=== PATIENT | male | born 1930 | race Caucasian/White ===

== ENCOUNTER 2016-04-15 10:18 | Emergency (ER) | payer MEDICARE, OTHER ==
[2016-04-15 10:36] VITALS: BP 143/73
--- NOTE | 2016-04-15 10:46 | ED Physician Documentation ---
General Adult - HISTORIAN Historian: patient - HPI Stated Complaint: Rash Chief Complaint: General Adult Onset: days ago (10) Severity: moderate Further Comments: yes (Pt is an 85 yo male with a rash on his anterior neck that has been going on for 10 days. Pt wondered if it was caused by the shaving cream he's been using, and changed shaving creams twice. Rash is pruritic and a little scaley.) - ROS CONST: no problems EYES/ENT: none CVS/RESP: none GI/: none MS/SKIN/LYMPH: rash (pruritic rash on anterior neck, b/l) - PAST HX Past History: hypertension, other (HLD, enlarged prostate) Allergies/Adverse Reactions: Allergies Allergy/AdvReac Type Severity Reaction Status Date / Time No Known Allergies Allergy Verified 04/15/16 10:29 Home Medications: Ambulatory Orders Medication Instructions Recorded Unobtainable [Unobtainable] 02/17/13 - SOCIAL HX Smoking History: chew - FAMILY HX Family History: No - VITAL SIGNS Vital Signs: Vital Signs Temp Pulse Resp BP Pulse Ox 97.9 F 54 L 16 143/73 98 04/15/16 10:31 04/15/16 10:31 04/15/16 10:31 04/15/16 10:31 04/15/16 10:31 - REVIEWED ASSESSMENTS Nursing Assessment Reviewed: Yes Vitals Reviewed: Yes Progress - Progress Progress: Rx Triamcinolone 1% cream. Apply to sparingly to affected area twice daily for 7 to 10 days. General Adult Physical Exam - PHYSICAL EXAM GENERAL APPEARANCE: mild distress EENT: eye inspection normal, ENT inspection normal, pharynx normal NECK: supple, other (erythematous, mildly scaley rash on anterior neck, b/l) RESPIRATORY: no resp distress CVS: reg rate & rhythm BACK: normal inspection SKIN: other (erythematous, mildly scaley rash on anterior neck, b/l) EXTREMITIES: non-tender, normal range of motion, no evidence of injury, no edema NEURO: oriented X3 Discharge Clincal Impression: Rash Referrals: Meaghan Minor FNP [Primary Care Provider] - 2 Days Additional Instructions: Rx Triamcinolone 1% cream. Apply to sparingly to affected area twice daily for 7 to 10 days. Home Medications: Ambulatory Orders Unobtainable [Unobtainable] 02/17/13 Condition: Good Disposition: 01 HOME, SELF-CARE Decision to Admit: NO Decision Time: 10:46
== END 2016-04-15 10:51 | disposition home or self-care (01) ==
LOC: ED 10:18
DX: R21 Rash and other nonspecific skin eruption (principal); F17.220 Nicotine dependence, chewing tobacco, uncomplicated; I10 Essential (primary) hypertension
CPT/HCPCS: 99282; 99283

== ENCOUNTER 2016-05-16 07:29 | Outpatient (CLI) | payer MEDICARE, OTHER ==
[2016-05-16 07:43] LABS: BASOPHILS % 0.4 (0.0-1.5); EOSINOPHILS % 4.3 % (0.0-6.8); LYMPHOCYTES # 1.8 # k/uL (0.6-4.0); MONOCYTES # 0.5 # k/uL (0.0-0.9); MONOCYTES % 6.4 % (0.0-11.0); NEUTROPHILS # 4.6 # k/uL (1.4-7.7)
[2016-05-16 08:24] LABS: eGFR (African) > 60; eGFR (Non-African) > 60
== END 2016-05-16 07:30 ==
LOC: LAB 07:29
PROVIDERS: ATTEND Internal Medicine Cardiovascular Disease
DX: I25.10 Atherosclerotic heart disease of native coronary artery without angina pectoris (principal); I35.0 Nonrheumatic aortic (valve) stenosis; I48.2 Chronic atrial fibrillation; I10 Essential (primary) hypertension
CPT/HCPCS: 36415; 80053; 80061; 84443; 85025

== ENCOUNTER 2016-05-18 10:15 | Outpatient (CLI) | payer MEDICARE, OTHER | END 2016-05-18 10:16 | LOC: CARD 10:15 | PROVIDERS: ATTEND Internal Medicine Cardiovascular Disease | DX: I48.2 Chronic atrial fibrillation (principal) | CPT/HCPCS: G0463 ==

== ENCOUNTER 2016-09-24 13:42 | Outpatient (CLI) | payer MEDICARE, OTHER ==
--- NOTE | 2016-09-24 15:29 | Diagnostic Imaging Report ---
KAREEM PABLO [facility] [address] Count Includes [facility] [address] [address] Report Submission Date: Sep 24, 2016 2:16:41 PM CDT Patient Study Name: JASWINDER BATISTA Date: Sep 24, 2016 1:46:27 PM CDT Modality Type: CR Gender: M Description: UPPER EXTREMITY : 31 Institution: [facility] Physician: KAREEM PABLO Examination: Plain film humerus History: Fall Comparison exams: None provided Findings: 4 views of the humerus demonstrate normal cortical margins. No fracture. No dislocation. Elbow and shoulder articular degenerative changes. No joint effusion Impression: Articular degenerative changes. No acute osseous abnormality. Electronically signed on Sep 24, 2016 2:16:41 PM CDT by: Mike MISHRA
== END 2016-09-24 13:43 ==
LOC: RAD 13:42
PROVIDERS: ATTEND Physician Assistant
DX: M79.601 Pain in right arm (principal)
CPT/HCPCS: 73060

== ENCOUNTER 2016-09-30 08:17 | Outpatient (CLI) | payer MEDICARE, OTHER ==
--- NOTE | 2016-09-30 14:23 | Diagnostic Imaging Report ---
[facility] [address] [facility] [address] Report Submission Date: Sep 30, 2016 1:55:39 PM CDT Patient Study Name: JASIWNDER BATISTA Date: Sep 30, 2016 9:02:31 AM CDT Modality Type: MR Gender: M Description: MRI UP EXT JNT W/O CONTRAST : 31 Institution: [facility] Physician: KAREEM PABLO Magnetic resonance imaging of right shoulder without contrast History: Persistent pain after fall 3 weeks ago Findings: Multiplanar magnetic resonance imaging the right shoulder performed without contrast. A type II curved acromion process present. There is widening of the acromioclavicular joint without marrow edema or joint effusion. This may represent an old grade II acromioclavicular separation vs distal clavicle resection. A small subacromial-subdeltoid bursal effusion is present. A full thickness distal supraspinatus tendon tear is present with retraction of some fibers to the mid humeral head level. A complete full thickness subscapularis tendon tear is observed with retraction of the fibers to the glenoid rim. Intramuscular edema is present. A biceps anchor tear is also present. There is also retraction of the extra-articular portion of the long head biceps tendon with only thin fibers observed in the bicipital groove. The teres minor and infraspinatus tendons are intact. There is no evidence of muscle atrophy. A moderate glenohumeral joint effusion is observed. A middle glenohumeral ligament tear is probably present. The superior and inferior glenohumeral ligaments are intact. There is minimal posterior superior glenoid labrum fraying. The remainder of the labrum is intact. Impression: 1. Retracted full thickness supraspinatus and subscapularis tendon tears. 2. Biceps anchor tear with long head biceps retraction. 3. Probable middle glenohumeral ligament tear. 4. 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 5. Joint and bursal effusions. 6. Mild posterior superior glenoid labrum fraying. Electronically signed on Sep 30, 2016 1:55:39 PM CDT by: Daniel MISHRA
== END 2016-09-30 08:37 | disposition home or self-care (01) ==
LOC: RAD 08:17
PROVIDERS: ATTEND Physician Assistant
DX: M75.101 Unspecified rotator cuff tear or rupture of right shoulder, not specified as traumatic (principal); M79.601 Pain in right arm
CPT/HCPCS: 73221

== ENCOUNTER 2017-02-25 09:38 | Outpatient (CLI) | payer MEDICARE, OTHER ==
[2017-02-25 10:37] LABS: eGFR (African) > 60; eGFR (Non-African) > 60
== END 2017-02-25 10:00 ==
LOC: LAB 09:38
PROVIDERS: ATTEND Clinical Nurse Specialist Medical-Surgical
DX: M89.9 Disorder of bone, unspecified (principal); Z13.820 Encounter for screening for osteoporosis
CPT/HCPCS: 36415; 80053; 82306; 83970; 84403

== ENCOUNTER 2018-08-06 13:53 | Outpatient (CLI) | payer MEDICARE, OTHER ==
--- NOTE | 2018-08-07 00:35 | Diagnostic Imaging Report ---
LUAN GREEN (MAURICE) - OP [facility] [address] [facility]. [address] [place] [address]. [address] Report Submission Date: August 06, 2018 2:43:34 PM CDT Patient Study Name: JASWINDER BATISTA Date: August 06, 2018 1:55:18 PM CDT Modality Type: DX Gender: M Description: ABD COMPLETE : 31 Institution: [facility] Physician: LUAN GREEN (MAURICE) - OP Complete abdomen History: Fell 1 week ago now with intestinal issues A total of four views of the abdomen were obtained and are all demarcated as upright. No free air is seen. Visualized lung bases are clear. There is some stool within the right colon but there is not significantly increased stool in the colon. There are several air-filled and mildly dilated small bowel loops. There are air-fluid levels within several small bowel loops at the left paracentral mid abdomen. On 1 upright radiograph, there are possibly small air- fluid levels within the transverse colon to splenic flexure as well. Overall, these bowel gas findings are nonspecific. These findings could indicate gastroenteritis. These findings could represent a mild adynamic ileus or possibly a partial small bowel obstruction. There is a round 6 mm calcification in the right hemipelvis, consistent with a phlebolith. Impression: Nonspecific bowel gas pattern. Please see body of report for full detail. No free air is seen. Electronically signed on August 06, 2018 2:43:34 PM CDT by: Laina MISHRA
== END 2018-08-06 13:55 ==
LOC: RAD 13:53
PROVIDERS: ATTEND Nurse Practitioner Family
DX: K56.7 Ileus, unspecified (principal)
CPT/HCPCS: 74019

== ENCOUNTER 2018-09-22 14:46 | Outpatient (CLI) | payer MEDICARE, OTHER ==
--- NOTE | 2018-09-22 17:06 | Diagnostic Imaging Report ---
LUAN GREEN ([employer]) - OP [facility] [address] [address] Report Submission Date: Sep 22, 2018 5:02:14 PM CDT Patient Study Name: JASWINDER BATISTA Date: Sep 22, 2018 4:02:24 PM CDT Modality Type: DX Gender: M Description: L SPINE 2 OR 3 VIEWS : 31 Institution: [facility] Physician: LUAN GREEN (MAURICE) - OP Exam: Lumbar spine. History: Low back pain. AP and lateral view of the lumbar spine are submitted. No previous studies are available for comparison. Five functional lumbar vertebrae are identified. Diffuse osteopenia is noted. Old anterior wedge deformity to the L2 vertebral body is suspected. The vertebral body heights are otherwise adequately maintained. No disc space narrowing is seen. No spondylolisthesis is noted. Impression: Old appearing compression deformity to L2. CT or MRI may be beneficial to further evaluate. Electronically signed on Sep 22, 2018 5:02:14 PM CDT by: Ward MISHRA
--- NOTE | 2018-09-22 17:07 | Diagnostic Imaging Report ---
LUAN GREEN (DATA WAREHOUSE ADMINISTRATOR) - OP [facility] [address] [address] Report Submission Date: Sep 22, 2018 5:00:52 PM CDT Patient Study Name: JASWINDER BATISTA Date: Sep 22, 2018 4:02:24 PM CDT Modality Type: DX Gender: M Description: T SPINE 3 VIEWS : 31 Institution: [facility] Physician: LUAN GREEN (MAURICE) - OP Exam: Thoracic spine. History: Fall 3 weeks ago. AP, lateral and swimmer's view of thoracic spine are submitted. Twelve rib- bearing thoracic segments are noted. The vertebral body heights are adequately maintained. Disc space narrowing with endplate sclerosis in the mid thoracic spine is noted. Pedicles are intact. Paravertebral soft tissues are normal. Impression: Degenerative changes. Electronically signed on Sep 22, 2018 5:00:52 PM CDT by: Ward MISHRA
== END 2018-09-22 14:48 ==
LOC: RAD 14:46
PROVIDERS: ATTEND Nurse Practitioner Family
DX: M51.34 Other intervertebral disc degeneration, thoracic region (principal); Q76.49 Other congenital malformations of spine, not associated with scoliosis
CPT/HCPCS: 72072; 72100

== ENCOUNTER 2019-02-19 09:25 | Emergency (ER) | payer MEDICARE, OTHER ==
--- NOTE | 2019-02-19 09:41 | ED Physician Documentation ---
General Adult - HISTORIAN Historian: patient - HPI Stated Complaint: weakness, shortness of breath Chief Complaint: General Adult Additional Information: Patient presents to ED with a 2-3 month history of dyspnea on exertion and w eakness. Patient went his PCP this morning to be evaluated. Upon presentation to the clinic his heart rate was in the 30s. He was referred to the ER. He denies chest pain at this time. He reports a cardiac history of cardiac stents x 2, 2 vessel by pass, CVA s/p endarctectomy. He sees Dr. Mann, Cardiology. - ROS CONST: no problems EYES/ENT: none GI/: none MS/SKIN/LYMPH: none NEURO/PSYCH: headache - PAST HX Past History: AMI Other History: none Surgeries/Procedures: none Allergies/Adverse Reactions: Allergies Allergy/AdvReac Type Severity Reaction Status Date / Time No Known Drug Allergies Allergy Verified 02/19/19 09:45 Home Medications: Ambulatory Orders Medication Instructions Recorded Apixaban [Eliquis] 5 mg PO BID 02/19/19 Sennosides [Senna] 8.6 mg PO BID 02/19/19 - SOCIAL HX Smoking History: non-smoker Alcohol Use: none Drug Use: none - FAMILY HX Family History: No - VITAL SIGNS Vital Signs: Vital Signs Temp Pulse Resp BP Pulse Ox 143/73 04/15/16 10:51 Progress - Progress Progress: [facility], [facility]ist agrees to accept patient. ED Results Lab/Radiology - Radiology Radiology Impressions: Report Submission Date: Feb 19, 2019 10:00:41 AM SALES REPRESENTATIVE DOOR TO DOOR Patient Study Name: JASWINDER BATISTA Date: Feb 19, 2019 9:26:34 AM SALES REPRESENTATIVE DOOR TO DOOR Modality Type: DX Gender: M Description: CHEST 1VIEW : 31 Institution: [facility] Physician: NICKI SOARES Exam: AP chest. History: Shortness of breath. No previous studies are available for comparison. Lung moran are well aerated. Left lower lobe infiltrate with pleural effusion is noted. Cardiac silhouette is enlarged with atherosclerotic plaques seen in the aorta. Sternotomy wires indicate previous thoracotomy. Impression: Left lower lobe infiltrate with pleural effusion. Electronically signed on Feb 19, 2019 10:00:41 AM SALES REPRESENTATIVE DOOR TO DOOR by: Ward Suh - Orders Orders: ED Orders Category Date Time Status Continuous EKG monitoring Q30M Care 02/19/19 09:[address] IV Lock 1T Care 02/19/19 09:35 Ordered CHEST 1VIEW [RAD] Stat Exams 02/19/19 Ordered CBC/PLATELET/DIFF Routine Lab 02/19/19 Ordered CMP [CMP] Routine Lab 02/19/19 Ordered NT BNP Stat Lab 02/19/19 Ordered TROPONIN I Stat Lab 02/19/19 Ordered Aspirin [Maurice] Med 02/19/19 09:38 Once 324 mg PO NOW ONE Oxygen Daily Oxygen 02/19/19 09:45 Ordered EKG WITH COMPARISON Stat Ther 02/19/19 Ordered General Adult Physical Exam - PHYSICAL EXAM GENERAL APPEARANCE: no distress EENT: SINDY NECK: supple RESPIRATORY: no resp distress, breath sounds normal CVS: other (bradycardia, 2/5 murmur) ABDOMEN: soft, normal bowel sounds, non-tender BACK: normal inspection SKIN: warm/dry EXTREMITIES: non-tender, no edema NEURO: oriented X3, mood/affect nml Discharge Clincal Impression: Symptomatic sinus bradycardia, Pleural effusion, left, Elevated brain natriuretic peptide (BNP) level, Elevated troponin I level Referrals: Jaylene Oviedo PRN [Primary Care Provider] - 2 Days Condition: Stable Disposition: 02 XFER SHT-TRM HOSP Decision to Admit: NO Date of Decison to Admit: 02/19/19 Decision Time: 10:54
[2019-02-19 09:59] LABS: eGFR (Non-African) > 60
--- NOTE | 2019-02-19 10:05 | Diagnostic Imaging Report ---
PATIENT MR#: [id number] PATIENT PATIENT NAME: JASWINDER BATISTA DATE OF : 1930 REFERRING PHYSICIAN: Yen Tan EXAM DATE: 02/19/2019 ACCESSION NUMBER: [id number] EXAM DESCRIPTION: CHEST 1VIEW Exam: AP chest. History: Shortness of breath. No previous studies are available for comparison. Lung moran are well aerated. Left lower lobe infiltrate with pleural effusion is noted. Cardiac si lhouette is enlarged with atherosclerotic plaques seen in the aorta. Sternotomy wires indicate previous thoracot mando. Impression: Left lower lobe infiltrate with pleural effusion. Read by: Dr. Ward Aguilar Transcribed by: Transcribed Date: Electronically signed by: Dr. Ward Aguilar Date signed: 02/19/2019 10:04:45 AM
[2019-02-19] MEDS: ASPIRIN 81 MG CHEW TAB PO ONE (10:10)
[2019-02-19] MEDS: 0.9 % SODIUM CHLORIDE 1,000 ML IV ONE (11:00)
[2019-02-19 11:31] LABS: BASOPHILS % 0.5 % (0.0-1.5); NEUTROPHILS # 5.1 # k/uL (1.4-7.7)
[2019-02-19 11:50] VITALS: BP 144/61
== END 2019-02-19 11:16 | disposition short-term general hospital (02) ==
LOC: ED 09:25
DX: R00.1 Bradycardia, unspecified (principal); J90 Pleural effusion, not elsewhere classified; R79.0 Abnormal level of blood mineral; R79.89 Other specified abnormal findings of blood chemistry
CPT/HCPCS: 71045; 80053; 83880; 84484; 85025; 93005; 96360; 96361; 99283; 99284; J7030; S1016